=== PATIENT | female | born 1970 | race Caucasian/White ===

== ENCOUNTER 2016-06-20 22:04 | Emergency (ER) | payer OTHER ==
[~2016-06-20] VITALS: Ht 165.1 cm; Wt 73.5 kg
[2016-06-20 22:13] VITALS: BP 127/76
--- NOTE | 2016-06-20 23:27 | NUR ---
PT TAKEN TO [facility]
--- NOTE | 2016-06-20 23:30 | NUR ---
Dr. Maldonado evaluating patient
[2016-06-20] MEDS ORDERED: HYDROcodone/APAP 5/325 MG 1 TAB TAB PO ONE (23:35)
--- NOTE | 2016-06-20 23:42 | NUR ---
PATIENT PRESENTS TO ED WITH LT ARM ERYTHEMA AND EDEMA . PT STATES SHE NOTICED IT WHILE AT WORK TODAY . DENIES N/V/D; SKIN IS PINK/WARM/DRY; AAOX4 WITH EVEN AND STEADY GAIT; LUNGS CLEAR BL; HR EVEN AND REGULAR; PT DENIES ANY FEVER, CP, SOB, OR COUGH AT THIS TIME; PATIENT STATES PAIN OF 5/10 AT THIS TIME PT STATES PAIN IS RADIATING DOWN LT ARM THREE MIDDLE FINGERS; VSS; PATIENT POSITIONED FOR COMFORT; HOB ELEVATED; BEDRAILS UP X2; BED DOWN. ER MD MADE AWARE OF PT STATUS.
--- NOTE | 2016-06-21 | NUR ---
Patient discharged with v/s stable. Written and verbal after care instructions given and explained. Patient alert, oriented and verbalized understanding of instructions. Ambulatory with steady gait. All questions addressed prior to discharge. ID band removed. Patient advised to follow up with PMD. Rx of BACTRIM DS 800/160MG, KEFLEX 500 MG, TYLENOL NO.3, NAPROSYN 500 MG given. Patient educated on indication of medication including possible reaction and side effects. Opportunity to ask questions provided and answered.
[2016-06-21 00:08] VITALS: BP 134/79
== END 2016-06-21 | disposition home or self-care (01) ==
LOC: MED 22:04
DX: S50.362A Insect bite (nonvenomous) of left elbow, initial encounter (principal); L03.114 Cellulitis of left upper limb; W57.XXXA Bitten or stung by nonvenomous insect and other nonvenomous arthropods, initial encounter; Y93.89 Activity, other specified; Y92.512 Supermarket, store or market as the place of occurrence of the external cause; Y99.8 Other external cause status